=== PATIENT | male | born 1985 | race Two or more races ===

== ENCOUNTER 2022-04-07 16:48 | Outpatient (CLI) | payer OTHER, SELFPAY ==
[2022-04-07 22:00] LABS: Basophils Absolute Auto 0.06 K/uL (0.00-0.30); Basophils Percent Auto 0.9 % (0.0-3.0); Eosinophils Absolute Auto 0.24 K/uL (0.00-0.50); Eosinophils Percent Auto 3.7 % (0.0-7.0); Hematocrit 45.3 % (37.0-53.0); Hemoglobin* 15.2 gm/dL (13.5-17.5); Lymphocytes Absolute Auto 2.07 K/uL (0.90-2.90); Lymphocytes Percent Auto 31.6 % (20-44); Mean Corpuscular HGB Conc 34 gm/dL (32-36); Mean Corpuscular Hemoglobin 30 pg (26-34); Mean Corpuscular Volume 88 fL (80-100); Monocytes Percent Auto 5.9 % (0.0-11.0); Neutrophils Percent Auto 57.9 % (42.0-72.0); Platelet Count* 151 K/uL (140-440); RDW Coefficient of Variation % 12.1 % (11.5-15.5); Red Blood Count 5.15 m/uL (4.30-5.90); White Blood Count* 6.56 K/uL (4.50-11.00)
[2022-04-07 22:16] LABS: Albumin* 4.8 g/dL (3.3-5.0); Chloride* 105 mmol/L (96-114)
[2022-04-07 22:17] LABS: Potassium* 4.5 mmol/L (3.6-5.1); Slide Review Reflex No; Sodium* 139 mmol/L (135-149)
[2022-04-07 22:19] LABS: Creatinine* 0.7 mg/dL (0.5-1.5); Estimated Glomerular Filt Rate 122 ml/min
[2022-04-07 22:20] LABS: Alanine Aminotransferase* 24 U/L (4-50); Alkaline Phosphatase* 70 U/L (40-150); Aspartate Amino Transferase* 28 U/L (12-35); Bilirubin Direct* 0.2 mg/dL (0.0-0.5); Bilirubin Total* 0.5 mg/dL (0.1-1.5); Blood Urea Nitrogen* 13 mg/dL (5-24); Calcium* 9.1 mg/dL (8.4-10.6); Carbon Dioxide* 27 mmol/L (20-32); Glucose* 100 mg/dL (60-115)
[2022-04-07 22:23] LABS: C Reactive Protein* < 0.5 mg/dL (0.5-1.0)
== END 2022-04-07 16:49 | disposition home or self-care (01) ==
PROVIDERS: PCP Family Medicine; Visit Provider Family Medicine
DX: G89.29 Other chronic pain (principal); R10.9 Unspecified abdominal pain
CPT/HCPCS: 80048; 80076; 85025; 86140

== ENCOUNTER 2022-04-11 12:02 | Outpatient (CLI) | payer OTHER, SELFPAY ==
--- NOTE | 2022-04-11 13:00 | CRLHL7_ITS ---
For Patients: As a result of the Century Cures Act, medical imaging exams and procedure reports are released immediately into your electronic medical record. You may view this report before your referring provider. If you have questions, please contact your health care provider. INDICATION: Abdominal pain. TECHNIQUE: CT abdomen and pelvis acquired with intravenous contrast, 71 mL of Isovue 370. Coronal and sagittal reformats. COMPARISON: None available. FINDINGS: The imaged lower chest is unremarkable. - Normal liver contour. No suspicious hepatic lesion. The portal and hepatic veins are patent. No biliary dilatation. The gallbladder, pancreas, spleen, and adrenals are unremarkable. - Symmetric renal enhancement. No hydronephrosis bilaterally. Unremarkable bladder and prostate. - The bowel appears normal in caliber and enhancement diffusely. Noninflamed appendix. No free air, free fluid, focal collection, or lymphadenopathy. - Normal caliber abdominal aorta. The major aortic branch vessels are patent and normal caliber. No suspicious osseous lesion. IMPRESSION: No acute/suspicious findings or CT correlate for abdominal pain identified. Please note that all CT scans at this facility use dose modulation, iterative reconstruction, and/or weight-based dosing when appropriate to reduce radiation dose to as low as reasonably achievable. Dictated by Scott George MD @ 04/13/2022 12:37:01 PM (Electronically Signed)
== END 2022-04-11 12:03 | disposition home or self-care (01) ==
PROVIDERS: PCP Family Medicine; Visit Provider Family Medicine
DX: R10.9 Unspecified abdominal pain (principal)
CPT/HCPCS: 74177; Q9967

== ENCOUNTER 2024-07-20 11:35 | Outpatient (CLI) | payer OTHER, SELFPAY | END 2024-07-20 11:36 | disposition home or self-care (01) | LOC: NFLDREF 11:41 | PROVIDERS: PCP Family Medicine; Visit Provider Family Medicine | DX: R10.9 Unspecified abdominal pain (principal); R42 Dizziness and giddiness | CPT/HCPCS: 80053 ==